=== PATIENT | female | born 1965 | race Caucasian/White ===

== ENCOUNTER 2020-03-05 16:42 | Emergency (ER) | payer OTHER ==
[2020-03-05] MEDS ORDERED: KEFLEX250 MG PO (17:42)
== END 2020-03-05 18:05 | disposition home or self-care (01) ==
LOC: FER 16:42
DX: L03.113 Cellulitis of right upper limb (principal); I10 Essential (primary) hypertension; Z88.1 Allergy status to other antibiotic agents
CPT/HCPCS: 99283